=== PATIENT | male | born 1980 | race Hispanic/Latino ===

== ENCOUNTER 2024-06-20 01:15 | Emergency (ER) | payer BC ==
[~2024-06-20] VITALS: Ht 172.7 cm; Wt 95.3 kg
--- NOTE | 2024-06-20 01:22 | NUR ---
COVID, FLU AND STREP SWABS COLLECTED AND SENT
[2024-06-20 01:41] LABS: RAPID GROUP A STREP negative (NEGATIVE)
[2024-06-20 01:44] LABS: SARS-CoV-2, RNA, NAAT NEGATIVE SARS CoV-2 (NEGATIVE)
[2024-06-20 01:48] LABS: INFLUENZA TYPE A Negative For Type A (NEGATIVE); INFLUENZA TYPE B Negative For Type B (NEGATIVE)
[2024-06-20] MEDS ORDERED: PRED20TA3 PO (03:52)
[2024-06-20] MEDS ORDERED: AZIT500T4 PO (03:52)
--- NOTE | 2024-06-20 03:56 | ERN ---
ED Note History of Present Illness Stated Complaint: SORE THROAT, CHEST CONGESTION Chief Complaint: Multiple Complaints Time Seen by MD: 01:22 Dictation: This is a 43-year-old male who presented to the emergency room with complaints of fevers chills sore throat and chest congestion. All these symptoms started 2 days ago and his daughter also has similar symptoms. He denied any travel in the last 6 weeks. Denied any new pets at home. He has a mild cough but is unable to expectorate any sputum he also reported that he was very short of breath with a congestion and was concerned and came into the ER for further evaluation. No history of any hemoptysis Temperature 97.8 pulse 83 respirations 18 blood pressure 122/77 with a pulse oximetry of 96% on room air He indicated that he was a heavy drinker before and has been sober for the past 8 months Allergies: Coded Allergies: No Known Allergies (Unverified Allergy, Unknown, 06/20/24) Home Meds Active Scripts Azithromycin (Azithromycin) 500 Mg Tablet, 1 TAB PO DAILY for 5 Days, #5 TAB 0 Refills Prov:FLAVIO VALENTINO MD 06/20/24 Prednisone (Prednisone) 20 Mg Tablet, 1 TAB PO AD for 6 Days, #14 TAB 0 Refills TAKE 1 TAB BY MOUTH THREE TIMES PER DAY X3 DAYS, THEN TAKE 1 TAB BY MOUTH TWICE A DAY X2 DAYS, THEN TAKE 1 TAB BY MOUTH ONCE A DAY X1 DAY. Prov:FLAVIO VALENTINO MD 06/20/24 Past Medical History Past Medical History: No Pertinent History Surgical History: Appendectomy, Other Surgical History Other: FACIAL Social History: Drugs (Previous remote history of marijuana), ETOH (History of heavy alcohol use up to 20 beers a day but has been sober for 8 months) RN Note Reviewed/Agreed w/PFSH: Yes Review of System Dictation Constitutional: Positive for fever,chills, and denies weight loss Eyes: Negative for injury, pain,redness, and discharge ENT: Negative for injury,pain or swelling Cardiovascular: Negative for chest pain, palpitations, and edema Respiratory: Positive for shortness of breath, cough, and congestion Abdomen/GI: Negative for abdominal pain, nausea, vomiting, diarrhea, and constipation Back: Negative for injury and pain : Negative for injury, bleeding and discharge MS/Extremity: Negative for injury and deformity Skin: Negative for rash, and discoloration Neuro: Negative for headache, weakness, numbness, tingling, and seizure Psych: Negative for suicide ideation, homicidal ideation, and hallucinations Initial Vital Sign VS Vital Signs Date Time Temp Pulse Resp B/P (MAP) Pulse Ox O2 Delivery O2 Flow Rate FiO2 06/20/24 01:16 97.9 83 18 122/77 96 Room Air 06/20/24 03:49 0 21 Physical Exam Dictation General: awake, alert, NAD Head/Face: Normocephalic, atraumatic Eyes: PERRL, EOMI, vision at baseline ENT: oral cavity clear, TMs clear, no signs of infection Neck: Trachea midline, supple, no nuchal rigidity Cardiovascular: RRR, normal S1/S2, No MRGs, no JVD Respiratory: Prolonged expiratory phase with occasional end expiratory wheeze, no respiratory distress, No rales or wheezes Abdomen: Soft, non-tender, non-distended, normal bowel sounds, no guarding or rebound. Skin: Warm, dry, normal turgor, no rash MS/Extremity: Pulses equal, no cyanosis, neurovascular intact, FROM Neuro: COAx4, GCS 15, strength 5/5, CN 2-12 intact, normal cerebellar exam, normal gait, Psych: Normal behavior, mood, and affect normal Extremities-trace edema without any palpable cords, Homans sign is negative Results (Laboratory/Radiology) Laboratory/Radiology Laboratory Tests Test 06/20/24 01:22 Influenza Type A Antigen Negative For Type A Influenza Type B Antigen Negative For Type B SARS-CoV-2, RNA, NAAT NEGATIVE SARS CoV-2 Group A Streptococcus Rapid negative (NEGATIVE) Labs Reviewed?: Yes ED Course ED Course Orders Procedure Category Date Status Time Covid Rna Naat LAB 06/20/24 Complete 01:20 Influenza Type A & B, LAB 06/20/24 Complete Rapid 01:20 Rapid (Group A Strep) LAB 06/20/24 Complete 01:20 Chest 1vw RAD 06/20/24 Taken 01:20 0.9% Nacl 500ml PHA 06/20/24 Complete Iv.Soln (Ns 500ml 04:00 Methylprednisolone PHA 06/20/24 Complete Succ 125mg (Solu-Medr 04:00 Ipratropium/Albuterol PHA 06/20/24 Complete Neb (Duoneb) 04:00 Ceftriaxone 1g Vial PHA 06/20/24 Complete (Rocephine 1g Inj) 04:00 Current Medications Medications (Trade) Dose Ordered Sig/Gracy Route PRN Reason Start Time Stop Time Status Last Admin Dose Admin Albuterol (DUOneb) 1 UDVIAL ONCE ONCE IH 06/20/24 04:00 06/20/24 04:01 DC 06/20/24 04:14 Ceftriaxone Sodium (ROCEphine 1G INJ) 1 gm ONCE ONCE IVPB 06/20/24 04:00 06/20/24 04:01 DC 06/20/24 03:57 Methylprednisolone Sodium Succinate (Solu-medROL 125MG) 60 mg ONCE ONCE IVP 06/20/24 04:00 06/20/24 04:01 DC 06/20/24 03:57 Sodium Chloride 500 ml @ 0 mls/hr ONCE ONCE IV 06/20/24 04:00 06/20/24 04:01 DC 06/20/24 03:57 Vital Signs Date Time Temp Pulse Resp B/P (MAP) Pulse Ox O2 Delivery O2 Flow Rate FiO2 06/20/24 04:14 81 20 06/20/24 03:49 98.2 72 18 105/66 96 Room Air* 0 21 06/20/24 01:16 97.9 83 18 122/77 96 Room Air We will perform diagnostic labs, advanced imaging and administer medications according to the patient's complaint. Once the results are available, will review and personally interpreted the labs to rule out any acute life- threatening emergency the trach require immediate intervention and treatment. I will then re-evaluate the patient after treatment and diagnostic exams have r eturn to determine whether the patient requires any further testing, can safely be discharged home or need further admission to hospital for additional treatment and evaluation. Viral studies including influenza COVID as well as strep rapid screen was nega tive. Chest x-ray shows mild prominence of bilateral interstitial infiltrates but no focal consolidation noted. I updated the patient at bedside on possibility of atypical pneumonia or viral pneumonia 5:45 a.m. clinically feels much better after fluids empiric antibiotics and a steroid Plan to DC with outpatient antibiotics Medical Decision Making MDM MDM: Differential diagnosis: Bronchitis, viral syndrome, atypical pneumonia, community-acquired pneumonia, bronchiolitis Rationale: Tests considered and ordered secondary to shared decision making include: Previous outside records reviewed: Old ER visits. Risk of complication and/or morbidity or mortality of patient management: None Medications-Per medication reconciliation Need for hospitalization: Patient does not meet criteria for hospitalization. Need for emergency major/minor surgery: No There are no social concerns with this patient. Prescription drug management Prescriptions will include symptomatic care Patient's prior external medical records from other ER visits were reviewed by me as indicated. Prior testing and results from previous visits were reviewed. Prior tests were taken into account with medical decision making and resource utilization, independent historian/historians were used to obtain complete medical history. I independently interpreted the test that were performed, results were reviewed by me and considered findings on radiology if ordered. Medical management and examination interpretation discussions were had by me with other qualified healthcare professionals as indicated for the patient's care. Problem List Problem List: (1) Atypical pneumonia (2) History of alcohol abuse DX & DISP Disposition: Discharge Departure Impression: Primary Impression: Atypical pneumonia Additional Impression: History of alcohol abuse Condition: Stable Scripts Azithromycin (Azithromycin) 500 Mg Tablet 1 TAB PO DAILY for 5 Days, #5 TAB 0 Refills Prov: FLAVIO VALENTINO MD 06/20/24 Prednisone (Prednisone) 20 Mg Tablet 1 TAB PO AD for 6 Days, #14 TAB 0 Refills TAKE 1 TAB BY MOUTH THREE TIMES PER DAY X3 DAYS, THEN TAKE 1 TAB BY MOUTH TWICE A DAY X2 DAYS, THEN TAKE 1 TAB BY MOUTH ONCE A DAY X1 DAY. Prov: FLAVIO VALENTINO MD 06/20/24 Additional Instructions: Patient and the caregiver have been informed of all the diagnostic tests and the imaging conducted during the today's visit to the emergency room and has verbalized understanding of the results I have personally reviewed and interpreted all diagnostic exams performed here in the ER today as well as the vital signs documented by the nursing staff. The patient is now being discharged to home and should follow up with the primary care physician or the specialist as directed by the ER staff. Follow-up with primary care provider in 1 to 2 days. Take medications as directed here in the emergency room. Okay to continue home medications unless otherwise discussed during your visit in the emergency room today. Return to your nearest emergency room if symptoms worsen or if there is no improvement. Call 911 if you need immediate assistance. Take Tylenol or Motrin [id number] as needed and if no contraindications are present. Increase oral hydration. A wound culture or urine culture was ordered here in the emergency room department please follow-up with primary care provider and advise them to get repeat ports from our facility. If you had any Cristo wrap/splints that were applied here, please do not remove them until you see your primary care or specialty. Referrals: LEIDA PAREDES MD (PCP) FLAVIO VALENTINO MD June 20, 2024 03:56
[2024-06-20] MEDS: cefTRIAXone 1G VIAL IVPB ONE (03:57)
[2024-06-20] MEDS: Solu-medROL 125MG VIAL IVP ONE (03:57)
[2024-06-20] MEDS: 0.9% NACL 500ML IV.SOLN 500 ML IV ONE (03:57)
[2024-06-20 04:14] VITALS: PULSE 81; RESP 20
[2024-06-20] MEDS: IpraTROPium/alBUTERol SULFATE 3 ML SOLUTION IH ONE (04:14)
[2024-06-20 05:44] VITALS: BP 115/73; PULSE 80; RESP 19; TEMP 98.5; O2SAT 98
--- NOTE | 2024-06-20 08:21 | HMCIMG ---
Exam Type: CHEST 1VW Clinical Information: CHEST CONGESTION Comparison: None Findings: The lungs are clear of infiltrates. The heart is normal in size. The bony and soft tissue structures of the chest are unremarkable. Impression: Clear lungs.
== END 2024-06-20 05:52 | disposition home or self-care (01) ==
LOC: EDH 01:15
DX: J18.9 Pneumonia, unspecified organism (principal); Z20.822 Contact with and (suspected) exposure to COVID-19
CPT/HCPCS: 99284; 96374; 71045; 87635; 96375; 87880; 87804 ×2; 94640; J2919; J7040; J0696